=== PATIENT | female | born 1995 | race Caucasian/White ===

== ENCOUNTER 2019-03-05 03:46 | Emergency (ER) | payer MEDICAID ==
[~2019-03-05] VITALS: Ht 162.6 cm; Wt 63.0 kg
[2019-03-05 04:00] VITALS: BP 120/84
--- NOTE | 2019-03-05 04:39 | NUR ---
PATIENT LEFT BEFORE MD ASSESSMENT
== END 2019-03-05 04:41 | disposition left against medical advice (07) ==
LOC: ER 03:53
DX: J45.909 Unspecified asthma, uncomplicated (principal); Z53.21 Procedure and treatment not carried out due to patient leaving prior to being seen by health care provider